=== PATIENT | male | born 1930 | race Caucasian/White ===

== ENCOUNTER → 2016-07-03 | Outpatient (CLI) | payer OTHER, MEDICARE ==
--- NOTE | 2016-07-03 16:40 | DX ---
Left Wrist, Four Views History: Trauma, pain, swelling. Fall. Comparison: None available. Findings: Severe fragmentation of the carpal bones, especially the scaphoid and lunate bones, with o nly a small fragment of lunate remaining and multiple intercarpal bone fragments, which limits evalua tion for acute versus old fracture fragments. Distal radius and ulna demonstrate no evidence of acut e fracture. There is dorsal soft tissue swelling dorsal to the carpometacarpal region. No evidence of metacarpal fracture. Vascular calcifications identified. Osteoarthritis of the radiocarpal joint space, with joint space narrowing and osteophytes. Impressions 1. Severe fragmentation of the carpal bones, especially the scaphoid and lunate bones, likely repres enting old trauma although given the dorsal soft tissue swelling, a dorsal triquetral fracture cannot be entirely excluded. 2. No definite fracture of the distal radius and ulna. 3. No definite metacarpal fracture. 4. Osteoarthritis involving the radiocarpal joint space. Preliminary report given to Dr. Lomeli's [employer] Supervisor at 1615 hours.
== END ==
LOC: BRMIMAGING 10:19
PROVIDERS: ATTEND Family Medicine
DX: M25.532 Pain in left wrist (principal)
CPT/HCPCS: 73110-PO